=== PATIENT | male | born 1995 | race Caucasian/White ===

== ENCOUNTER 2024-03-07 14:28 | Emergency (ER) | payer SELFPAY ==
[~2024-03-07] VITALS: Ht 177.8 cm; Wt 70.8 kg
[2024-03-07] MEDS ORDERED: methylPREDNISolone SOD SUCC 125 MG/2ML VIAL ONE (14:54)
[2024-03-07] MEDS ORDERED: diphenhydrAMINE HCL 50 MG/ML VIAL ONE (14:54)
[2024-03-07] MEDS ORDERED: FAMOTIDINE/PF INJ 20 MG/2 ML VIAL IV ONE (14:54)
[2024-03-07] MEDS: diphenhydrAMINE HCL 50 MG/ML VIAL IV ONE (15:05)
[2024-03-07] MEDS: FAMOTIDINE/PF INJ 20 MG/2 ML VIAL IV ONE (15:06)
[2024-03-07] MEDS: methylPREDNISolone SOD SUCC 125 MG/2ML VIAL IV ONE (15:06)
[2024-03-07] MEDS ORDERED: EPIN0.3P3 IM (16:30)
[2024-03-07] MEDS ORDERED: PRED50TA PO (16:30)
[2024-03-07 16:49] VITALS: BP 114/64; TEMP 98; O2SAT 96
== END 2024-03-07 16:53 | disposition left against medical advice (07) ==
LOC: ER 14:30
DX: T78.40XA Allergy, unspecified, initial encounter (principal); R20.2 Paresthesia of skin; R21 Rash and other nonspecific skin eruption; R22.0 Localized swelling, mass and lump, head; Z79.52 Long term (current) use of systemic steroids; X58.XXXA Exposure to other specified factors, initial encounter
CPT/HCPCS: 99284; 96374; 96375; J1200; J3490; J2919